=== PATIENT | female | born 1985 | race African-American/Black ===

== ENCOUNTER 2018-12-03 16:44 | Emergency (ER) | payer SELFPAY | END 2018-12-03 18:55 | disposition home or self-care (01) | LOC: MADERS 16:44 | DX: J11.1 Influenza due to unidentified influenza virus with other respiratory manifestations (principal); I10 Essential (primary) hypertension; F17.210 Nicotine dependence, cigarettes, uncomplicated; F41.9 Anxiety disorder, unspecified; Z79.899 Other long term (current) drug therapy | CPT/HCPCS: 87804; 99283 ==